=== PATIENT | male | born 1970 | race Caucasian/White ===

== ENCOUNTER 2017-12-02 00:22 | Inpatient (IN) | payer MEDICAID ==
[~2017-12-02] VITALS: Ht 170.2 cm; Wt 96.6 kg
[2017-12-02] MEDS ORDERED: SERT50TA12 PO (00:33)
[2017-12-02] MEDS ORDERED: ARIP2 PO (00:33)
[2017-12-02 01:18] LABS: BASOPHILS % (AUTO) 0.6 % (0.0-2.0); EOSINOPHILS % (AUTO) 4.3 % (1.0-6.0); HEMATOCRIT 43.6 % (41-53); HEMOGLOBIN 14.8 g/dL (13.5-17.5); LYMPHOCYTES % (AUTO) 26.3 % (22.0-44.0); MEAN CORPUSCULAR HEMOGLOBIN 29.7 pg (26.0-34.0); MEAN CORPUSCULAR VOLUME 88 fL (80-100); MONOCYTES # (AUTO) 0.5 K/uL (0.1-1.0); MONOCYTES % (AUTO) 6.9 % (2.0-9.0); NEUTROPHILS # (AUTO) 4.7 K/uL (1.8-7.7); NEUTROPHILS % (AUTO) 61.9 % (40.0-70.0); PLATELET COUNT (AUTO) 199 K/uL (150-450); RED BLOOD CELL COUNT(AUTO) 4.98 MIL/uL (4.50-5.90); RED CELL DISTRIBUTION WIDTH 14.1 % (11.5-14.5)
[2017-12-02 01:40] LABS: ANION GAP 6 mmol/L (8-16); CALCIUM, TOTAL 9.1 mg/dL (8.8-10.5); CARBON DIOXIDE 27 mmol/L (22-29); CHLORIDE 103 mmol/L (98-107); CREATININE 0.96 mg/dL (0.60-1.30); GLOMERULAR FILTR. RATE CALC > 60 mL/min (>60); GLUCOSE,RANDOM 108 mg/dL (70-110); SODIUM SERUM 136 mmol/L (136-145); UREA NITROGEN, BLOOD 28 mg/dL (7-18)
[2017-12-02 01:47] LABS: ALANINE AMINOTRANSFERASE 29 U/L (12-78); ALBUMIN 3.7 g/dL (3.4-5.0); ALKALINE PHOSPHATASE 82 U/L (46-116); ASPARTATE AMINOTRANSFERASE 19 U/L (15-37); BILIRUBIN,TOTAL 0.3 mg/dL (0.1-1.0); TOTAL PROTEIN, SERUM 7.5 g/dL (6.4-8.2)
[2017-12-02] MEDS ORDERED: HALOPERIDOL 5 MG TABLET PO PRN (02:00)
[2017-12-02] MEDS ORDERED: ZOLPIDEM TARTRATE 10 MG TABLET PO PRN (02:00)
[2017-12-02] MEDS ORDERED: LORazepam 2 MG TABLET PO PRN (02:00)
[2017-12-02 03:42] VITALS: BP 120/81
[2017-12-02 08:02] VITALS: BP 100/64
[2017-12-02] MEDS ORDERED: BACITRACIN 28.4 GM OINTMENT TP PRN (09:15)
[2017-12-02] MEDS ORDERED: IBUPROFEN 600 MG TABLET PO PRN (09:15)
[2017-12-02] MEDS ORDERED: ACETAMINOPHEN 325 MG TABLET PO PRN (09:15)
[2017-12-02] MEDS ORDERED: MAGNESIUM HYDROXIDE SUSPENSION 30 ML UDCUP PO PRN (09:15)
[2017-12-02] MEDS ORDERED: ALBUTEROL SULFATE HFA 90 MCG/PUFF 8 GM INHALER IH PRN (09:15)
[2017-12-02] MEDS ORDERED: BENZOCAINE/MENTHOL LOZENGE MM PRN (09:15)
[2017-12-02] MEDS ORDERED: LOPERAMIDE HCL 2 MG CAPSULE PO PRN (09:15)
[2017-12-02] MEDS ORDERED: ONDANSETRON HCL 4 MG TABLET PO PRN (09:15)
[2017-12-02] MEDS ORDERED: MAG HYDROX/AL HYDROX/SIMETH ES 30 ML SUSPENSION UDCUP PO PRN (09:15)
[2017-12-02] MEDS ORDERED: CloNIDine HCL 0.1 MG TABLET PO PRN (09:15)
[2017-12-02] MEDS ORDERED: PETROLATUM,WHITE 71 GM JELLY TP PRN (09:15)
[2017-12-02 16:29] VITALS: BP 117/71
[2017-12-03 06:32] VITALS: BP 108/80
[2017-12-03] MEDS: SERTRALINE HCL 50 MG TABLET PO SCH (08:34)
[2017-12-03 08:42] LABS: CHOL/HDL RATIO 4.3 (4.2-7.3)
[2017-12-03 08:59] VITALS: BP 114/68
[2017-12-03] MEDS ORDERED: ARIPiprazole 2 MG TABLET PO SCH (09:00)
[2017-12-03 16:21] VITALS: BP 118/86
[2017-12-03] MEDS: ARIPiprazole 5 MG TABLET PO SCH (20:03)
[2017-12-04 06:17] VITALS: BP 126/71
[2017-12-04] MEDS: SERTRALINE HCL 50 MG TABLET PO SCH (08:37)
[2017-12-04 08:54] VITALS: BP 100/58
[2017-12-04 16:24] VITALS: BP 123/76
[2017-12-04 19:35] VITALS: BP 128/80
[2017-12-04] MEDS: ARIPiprazole 5 MG TABLET PO SCH (20:06)
[2017-12-05 03:15] VITALS: BP 123/77
[2017-12-05] MEDS: SERTRALINE HCL 50 MG TABLET PO SCH (08:35)
[2017-12-05 08:38] VITALS: BP 119/74
[2017-12-05 13:22] LABS: GLUCOMETER DEV NAME(LOC) BV2N3; GLUCOSE,POINT OF CARE 135 MG/DL (70-110)
[2017-12-05 16:32] VITALS: BP 118/71
[2017-12-05 16:53] LABS: GLUCOMETER DEV NAME(LOC) BV2N3; GLUCOSE,POINT OF CARE 154 MG/DL (70-110)
[2017-12-05] MEDS: ARIPiprazole 5 MG TABLET PO SCH (20:42)
[2017-12-06 03:45] VITALS: BP 117/66
[2017-12-06 07:12] LABS: GLUCOMETER DEV NAME(LOC) BV2N3; GLUCOSE,POINT OF CARE 98 MG/DL (70-110)
[2017-12-06] MEDS: SERTRALINE HCL 50 MG TABLET PO SCH (07:59)
[2017-12-06 08:25] LABS: HEMATOCRIT 40.4 % (41-53); HEMOGLOBIN 14.3 g/dL (13.5-17.5); MEAN CORPUSCULAR HEMOGLOBIN 30.2 pg (26.0-34.0); MEAN CORPUSCULAR HGB CONC 35.3 G/dL (31.0-37.0); MEAN CORPUSCULAR VOLUME 86 fL (80-100); PLATELET COUNT (AUTO) 173 K/uL (150-450); RED BLOOD CELL COUNT(AUTO) 4.73 MIL/uL (4.50-5.90); RED CELL DISTRIBUTION WIDTH 13.9 % (11.5-14.5)
[2017-12-06 08:32] LABS: ANION GAP 5 mmol/L (8-16); CARBON DIOXIDE 29 mmol/L (22-29); CHLORIDE 107 mmol/L (98-107); CREATININE 0.84 mg/dL (0.60-1.30); GLUCOSE,RANDOM 90 mg/dL (70-110); POTASSIUM 4.1 mmol/L (3.5-5.1); SODIUM SERUM 141 mmol/L (136-145); UREA NITROGEN, BLOOD 13 mg/dL (7-18)
[2017-12-06 08:33] LABS: CALCIUM, TOTAL 8.6 mg/dL (8.8-10.5); GLOMERULAR FILTR. RATE CALC > 60 mL/min (>60); PHOSPHORUS 3.6 mg/dL (2.5-4.9)
[2017-12-06 09:26] VITALS: BP 120/75
[2017-12-06 10:05] LABS: BAND NEUTROPHILS % (MANUAL) 2 % (0-5); LYMPHOCYTES % (MANUAL) 55 % (22-44); MONOCYTES % (MANUAL) 7 % (2-9); SEGMENTED NEUTROPHILS % 36 % (40-70)
[2017-12-06 16:25] VITALS: BP 110/78
[2017-12-06 17:18] LABS: GLUCOMETER DEV NAME(LOC) BV2S 2; GLUCOSE,POINT OF CARE 128 MG/DL (70-110)
[2017-12-06] MEDS: ARIPiprazole 5 MG TABLET PO SCH (20:45)
[2017-12-07 05:37] LABS: GLUCOMETER DEV NAME(LOC) BV2S 2; GLUCOSE,POINT OF CARE 89 MG/DL (70-110)
[2017-12-07 06:28] VITALS: BP 114/66
[2017-12-07] MEDS: SERTRALINE HCL 50 MG TABLET PO SCH (08:06)
[2017-12-07 08:51] VITALS: BP 123/79
[2017-12-07 16:32] LABS: GLUCOMETER DEV NAME(LOC) BV2S 2; GLUCOSE,POINT OF CARE 150 MG/DL (70-110)
[2017-12-07 16:52] VITALS: BP 120/82
[2017-12-07] MEDS: ARIPiprazole 5 MG TABLET PO SCH (20:46)
[2017-12-07] MEDS ORDERED: ARIP5TAB8 PO (21:03)
[2017-12-07] MEDS ORDERED: SERT50TA12 PO (21:12)
[2017-12-08 06:33] VITALS: BP 120/57
[2017-12-08] MEDS: SERTRALINE HCL 50 MG TABLET PO SCH (07:55)
[2017-12-08 08:58] VITALS: BP 123/79
== END 2017-12-08 09:00 | disposition home or self-care (01) | DRG 750 ==
LOC: EMS 00:23 → B2S 02:04
PROVIDERS: ADMIT Psychiatry & Neurology Psychiatry; ATTEND Psychiatry & Neurology Psychiatry
DX: F25.9 Schizoaffective disorder, unspecified (principal); R45.851 Suicidal ideations; F32.9 Major depressive disorder, single episode, unspecified; F43.10 Post-traumatic stress disorder, unspecified; E66.9 Obesity, unspecified; M54.5 Low back pain; G47.00 Insomnia, unspecified; Z90.49 Acquired absence of other specified parts of digestive tract; Z79.899 Other long term (current) drug therapy; Z68.33 Body mass index [BMI] 33.0-33.9, adult; Z56.0 Unemployment, unspecified
CPT/HCPCS: 80074; 83036; 83735; 84100; 85007; 99285; G0480